=== PATIENT | male | born 1985 | race Caucasian/White ===

== ENCOUNTER 2017-01-09 07:43 | Inpatient (IN) | payer MEDICARE, OTHER ==
[~2017-01-09] VITALS: Wt 62.3 kg
[2017-01-09] MEDS ORDERED: LORAZEPAM 2 MG INJ ONE ×2 (07:50)
[2017-01-09] MEDS ORDERED: LORAZEPAM 2 MG INJ IM STA (07:54)
[2017-01-09] MEDS ORDERED: SOD CHLORIDE 0.9% 1,000 ML IV STA (07:54)
--- NOTE | 2017-01-09 07:58 | ERD ---
ER Documentation Chief Complaint Date/Time DATE: 01/09/17 TIME: 07:56 Chief Complaint HPI Patient is a 31-year-old male who is found outside of a business in a parking lot acting erratically. The patient reported that he been in an alley using methamphetamine for the last 2 days. He was approached by police and became more agitated. There is no reported sign of trauma or complaint. Patient was noted to be covered in dirt and wearing only underwear. The patient currently has no complaints and is requesting to go to detention. He denies injury, medical condition, suicidality. ROS All systems reviewed and are negative except as per history of present illness. PMhx/Soc Past medical history: None Past surgical history: None Social history: Uses methamphetamine FmHx Family History: No coronary disease, No diabetes Physical Exam Vitals Vital Signs Date Time Temp Pulse Resp B/P Pulse Ox O2 Delivery O2 Flow Rate FiO2 01/09/17 12:22 82 17 111/62 99 01/09/17 11:58 59 14 122/70 94 Room Air 01/09/17 10:48 109 18 116/70 99 01/09/17 08:15 98.9 112 24 117/68 98 01/09/17 08:01 130 18 126/70 98 Physical Exam Const: Agitated, thrashing in bed, redirectable Head: Atraumatic Eyes: Normal Conjunctiva, no pallor, no icterus. Mydriasis ENT: Normal External Ears, Nose and Mouth. Tacky mucous membranes Neck: Full range of motion..~ No meningismus. Resp: Clear to auscultation bilaterally, no wheezes, no rales Cardio: Tachycardia, regular rhythm, no murmurs Abd: Soft, non tender, non distended. Skin: No petechiae or rashes, covered in dirt from head to toe Back: No midline or flank tenderness Ext: No cyanosis, or edema Neur: Awake and alert, significant akathisia, cranial nerves II through XII intact bilaterally, strength and sensation full in 4 extremities. Psych: Agitated Result Diagram: 01/09/17 0908 01/09/17 0908 Results 24 hrs Laboratory Tests Test 01/09/17 09:05 01/09/17 09:08 01/09/17 10:00 Urine Color YELLOW Urine Clarity CLOUDY Urine pH 5.0 Urine Specific [place] 1.016 Urine Ketones TRACEmg/dL Urine Nitrite NEGATIVEmg/dL Urine Bilirubin NEGATIVEmg/dL Urine Urobilinogen NEGATIVEmg/dL Urine Leukocyte Esterase NEGATIVELeu/ul Urine Microscopic RBC > 182/HPF Urine Microscopic WBC 10/HPF Urine Amorphous Crystals FEW/HPF Urine Bacteria FEW/HPF Urine Hyaline Casts FEW/HPF Urine Granular Casts FEW/HPF Urine Mucus FEW/HPF Urine Yeast (Budding) MODERATE/HPF Urine Hemoglobin 3+mg/dL Urine Glucose NEGATIVEmg/dL Urine Total Protein 1+mg/dl Urine Opiates Screen Positive Urine Barbiturates Positive Urine Amphetamines Screen POSITIVE Urine Benzodiazepines Screen Positive Urine Cocaine Screen Negative Urine Cannabinoids Negative White Blood Count 13.110^3/ul Red Blood Count 4.6410^6/ul Hemoglobin 13.6g/dl Hematocrit 38.8% Mean Corpuscular Volume 83.6fl Mean Corpuscular Hemoglobin 29.3pg Mean Corpuscular Hemoglobin Concent 35.1g/dl Red Cell Distribution Width 13.2% Platelet Count 63628^3/UL Mean Platelet Volume 11.0fl Neutrophils % 80.8% Lymphocytes % 8.3% Monocytes % 9.7% Eosinophils % 0.5% Basophils % 0.2% Nucleated Red Blood Cells % 0.0/100WBC Neutrophils # 10.610^3/ul Lymphocytes # 1.110^3/ul Monocytes # 1.310^3/ul Eosinophils # 0.110^3/ul Basophils # 0.010^3/ul Nucleated Red Blood Cells # 0.010^3/ul Sodium Level 134mmol/L Potassium Level 4.3mmol/L Chloride Level 89mmol/L Carbon Dioxide Level 19mmol/L Anion Gap 30 Blood Urea Nitrogen 68mg/dl Creatinine 2.45mg/dl Glucose Level 81mg/dl Calcium Level 8.4mg/dl Total Bilirubin 0.8mg/dl Direct Bilirubin 0.00mg/dl Indirect Bilirubin 0.8mg/dl Aspartate Amino Transf (AST/SGOT) 98IU/L Alanine Aminotransferase (ALT/SGPT) 60IU/L Alkaline Phosphatase 115IU/L Creatine Kinase 2990IU/L 3055IU/L Total Protein 7.8g/dl Albumin 5.2g/dl Globulin 2.60g/dl Albumin/Globulin Ratio 2.00 Salicylates Level < 1.0mg/dl Acetaminophen Level < 10.0ug/ml Ethyl Alcohol Level < 10.0mg/dl Current Medications Medications (Trade) Dose Ordered Sig/Livan Route PRN Reason Start Time Stop Time Status Last Admin Dose Admin Sodium Chloride (NS) 1,000 ml @ 1,000 mls/hr Q1H STAT IV 01/09/17 07:54 01/09/17 08:53 DC 01/09/17 09:13 Lorazepam 4 mg 4 mg ONCE STAT IM 01/09/17 07:54 01/09/17 07:56 DC 01/09/17 07:54 Sodium Chloride 1,000 ml @ 1,000 mls/hr Q1H ONCE IV 01/09/17 08:00 01/09/17 08:59 DC 01/09/17 10:30 Sodium Chloride (NS) 1,000 ml @ 1,000 mls/hr Q1H ONCE IV 01/09/17 11:30 01/09/17 12:29 DC 01/09/17 11:59 Procedures/MDM MDM: Patient is a 31-year-old male with recent methamphetamine use who presents to the ER with psychotic episode. He had severe agitation and akathisia. He was given IM Ativan for behavioral control. He was given IV fluids for clinical signs of dehydration. A creatine kinase was elevated at nearly 3000, and on subsequent recheck after IV fluids was up trending. The patient has evidence of acute renal injury which may be in part due to dehydration, but I cannot exclude renal injury from rhabdomyolysis. There are no signs of trauma on exam. The patient had stable vital signs. The patient had snoring respirations after receiving Ativan and required monitoring for brief episodes of desaturation. He appeared to be protecting his airway adequately. His chest x-ray showed a questionable infiltrate, but I do not believe the patient has clinical signs of pneumonia at this time. I will defer antibiotics and will admit the patient to observation for further monitoring and hydration. He will need further evaluation as to potential underlying psychiatric condition as well as possible symptoms once he is awake and evaluable. At this time he remains sedated with intermittent episodes of wakefulness with agitation to preclude adequate exam. Departure Diagnosis: Primary Impression: Drug-induced psychotic disorder Complication of substance-induced condition: with unspecified complication Qualified Code: F19.959 - Drug-induced psychotic disorder, with unspecified complication Additional Impressions: Rhabdomyolysis Rhabdomyolysis type: non-traumatic Qualified Code: M62.82 - Non-traumatic rhabdomyolysis Acute renal failure Acute renal failure type: unspecified Qualified Code: N17.9 - Acute renal failure, unspecified acute renal failure type Dehydration Condition: REZA Lewis MD Jan 09, 2017 07:58
[2017-01-09] MEDS ORDERED: SOD CHLORIDE 0.9% 1,000 ML IV ONE ×2 (08:00→11:30)
[2017-01-09 09:30] LABS: BASOPHILS % 0.2 % (0.0-2.0); EOSINOPHILS # 0.1 10^3/ul (0.0-0.5); EOSINOPHILS % 0.5 % (0.0-7.0); HEMATOCRIT 38.8 % (42.0-52.0); HEMOGLOBIN 13.6 g/dl (14.0-18.0); LYMPHOCYTES # 1.1 10^3/ul (0.8-2.9); LYMPHOCYTES % 8.3 % (15.0-51.0); MEAN CORPUSCULAR HEMOGLOBIN 29.3 pg (29.0-33.0); MEAN CORPUSCULAR HGB CONC 35.1 g/dl (32.0-37.0); MEAN CORPUSCULAR VOLUME 83.6 fl (82.0-101.0); MONOCYTE # 1.3 10^3/ul (0.3-0.9); MONOCYTES % 9.7 % (0.0-11.0); NEUTROPHIL # 10.6 10^3/ul (1.6-7.5); NEUTROPHILS % 80.8 % (39.0-77.0); PLATELET COUNT 218 10^3/UL (140-415); RED BLOOD COUNT 4.64 10^6/ul (4.70-6.10); RED CELL DISTRIBUTION WIDTH 13.2 % (11.5-14.5); WHITE BLOOD COUNT 13.1 10^3/ul (4.8-10.8)
[2017-01-09 09:54] LABS: ALANINE AMINOTRANSFERASE 60 IU/L (13-69); ALBUMIN 5.2 g/dl (3.3-4.9); ALKALINE PHOSPHATASE 115 IU/L (42-121); ANION GAP 30 (8-16); ASPARTATE AMINO TRANSFERASE 98 IU/L (15-46); BILIRUBIN,INDIRECT 0.8 mg/dl (0-1.1); BILIRUBIN,TOTAL 0.8 mg/dl (0.2-1.3); BLOOD UREA NITROGEN 68 mg/dl (7-20); CALCIUM 8.4 mg/dl (8.4-10.2); CARBON DIOXIDE 19 mmol/L (21-31); CHLORIDE 89 mmol/L (97-110); CREATININE 2.45 mg/dl (0.61-1.24); GLUCOSE 81 mg/dl (70-220); POTASSIUM 4.3 mmol/L (3.5-5.1); SODIUM 134 mmol/L (135-144); TOTAL PROTEIN 7.8 g/dl (6.1-8.1)
[2017-01-09 09:55] LABS: UR AMORPHOUS CRYSTAL FEW /HPF (NONE SEEN); UR RBC > 182 /HPF (0-5)
[2017-01-09 10:01] LABS: BARBITURATES Positive (NEGATIVE); BENZODIAZEPINES Positive (NEGATIVE)
[2017-01-09 10:01] LABS: ACETAMINOPHEN < 10.0 ug/ml (10.0-30.0); ETHANOL < 10.0 mg/dl; SALICYLATE < 1.0 mg/dl (5.0-30.0)
[2017-01-09 10:05] LABS: UR BUDDING YEAST MODERATE /HPF (NONE SEEN); UR MUCUS FEW /HPF (NONE SEEN)
[2017-01-09 10:07] LABS: CREATINE KINASE 2990 IU/L (23-200)
[2017-01-09 10:08] LABS: CANNABINOIDS Negative (NEGATIVE); COCAINE Negative (NEGATIVE); OPIATES Positive (NEGATIVE)
[2017-01-09 11:51] LABS: ADD UMIC YES; UR ASCORBIC ACID NEGATIVE (NEGATIVE); UR BACTERIA FEW /HPF (NONE SEEN); UR BILIRUBIN (Dip) NEGATIVE (NEGATIVE); UR BLOOD (Dip) 3+ mg/dL (NEGATIVE); UR CLARITY CLOUDY (CLEAR); UR COLOR YELLOW (YELLOW); UR GLUCOSE (Dip) NEGATIVE (NEGATIVE); UR KETONES (Dip) TRACE mg/dL (NEGATIVE); UR LEUKOCYTE ESTERASE (Dip) NEGATIVE Leu/ul (NEGATIVE); UR NITRITE (Dip) NEGATIVE (NEGATIVE); UR SPECIFIC GRAVITY (Dip) 1.016 (1.003-1.030); UR TOTAL PROTEIN (Dip) 1+ mg/dl (NEGATIVE); UR UROBILINOGEN (Dip) NEGATIVE (NEGATIVE)
--- NOTE | 2017-01-09 12:58 | RADRPT ---
PROCEDURE: XR Chest. CLINICAL INDICATION: Hypoxemia and a 31 year-old male. TECHNIQUE: Single frontal view of the chest was obtained. COMPARISON: None FINDINGS: The soft tissues are normal. The bony elements are normal. The heart is enlarged. The cardiomedia stinal silhouette and hilar structures are normal. The pulmonary vasculature is normal. There is a left-sided aorta. There are equivocal infiltrates in the left perihilar area. Increased density in t he area may be the result of rotation of the patient associated with a poor inspiration. There is a suboptimal inspiration. The costophrenic angles are normal. IMPRESSION: 1. Left ventricular enlargement. 2. Early infiltrates in the left hilar area are not excluded. RPTAT:AAJJ Physician Diana Date Time Electronically viewed and signed by Shabbir Mayfield Physician on 01/09/2017 12:58 HAMZAH/
[2017-01-09] MEDS ORDERED: ONDANSETRON 4 MG INJ IV PRN ×2 (13:30→14:00)
[2017-01-09] MEDS ORDERED: ACETAMINOPHEN 325 MG TAB PO PRN ×2 (13:30→14:00)
[2017-01-09] MEDS ORDERED: MAGNESIUM SULFATE 2 GM/50 ML 50 ML IVPB ONE (14:00)
[2017-01-09] MEDS ORDERED: DOCUSATE SODIUM 100 MG CAP PO PRN (14:00)
[2017-01-09] MEDS ORDERED: ACETAMINOPHEN 650 MG SUPP PR PRN (14:00)
[2017-01-09] MEDS ORDERED: MAGNESIUM HYDROXIDE 30ML CUP PO PRN (14:00)
[2017-01-09] MEDS ORDERED: NACL 0.9% 3 ML SYG IV SCH (14:00)
[2017-01-09] MEDS ORDERED: BISACODYL 10 MG SUPP PR PRN (14:00)
[2017-01-09] MEDS ORDERED: morphine 2 MG INJ IV PRN (14:00)
--- NOTE | 2017-01-09 14:04 | HP ---
Date/Time of Note Date/Time of Note DATE: 01/09/17 TIME: 13:55 Assessment/Plan VTE Prophylaxis VTE Prophylaxis Intervention: SCD's Assessment/Plan Chief Complaint/Hosp Course Impression and plan 1. Altered mentation secondary to drug overdose. Patient did have positive tox screen for benzodiazepines, amphetamines, opioids and barbiturates. Patient IV hydration. Monitor neuro status and vital signs. Pain management physician to follow. Start on IV hydration. 2. Rhabdomyolysis. Unknown if patient with trauma. Start IV hydration. monitor CK 3. Acute renal failure. Start IV hydration. Will get x ray service engineer to follow. . Likely secondary to dehydration. 4. Suspect new onset pneumonia. Will start on antibiotic 5. Hyponatremia. Start IV hydration. 6. Drug abuse. Will get social security benefits interviewer to follow 7. Leukocytosis. check urine cultures Discussed plan of care with Dr. Dawn Admission Process time: 40 minutes Problems: HPI/ROS Admit Date/Time Admit Date/Time Hx of Present Illness This is a 31-year-old male with unknown past medical history who was brought to [facility] after being found with erratic behavior and altered mentation. It was reported the patient had been using meth amphetamine for 2 days prior to admission. He was approached by police and became agitated. There were no reports or signs of trauma. He was of note seen covering during only wearing his underwear. It was reported that patient had been requesting to go to penitentiary. It was reported he denies any injury or mental health condition or suicidality. He was brought to [facility] for further evaluation. Upon examination he was noted to have white count of 15.1. He also had positive tox screen for opiates, barbiturates, amphetamines, benzodiazepines. Chest x-ray did show him to have some left ventricular enlargement early infiltrates in the left hilar area suspect for possible early pneumonia. Per patient metabolic panel, patient was seen with acute renal failure and creatinine kinase as high as 2054 with signs of rhabdomyolysis. Patient at present remains somnolent. He does awaken to noxious stimulus. We will evaluate him for the aformentiond issues.. ROS Unable to fully obtain due to patient's altered mentation PMH/Family/Social Past Medical History Unable to obtain due to patient's altered mentation Past Surgical History Unable to obtain due to patient's altered mentation Social History Smoking Status: Heavy tobacco smoker Drug Use: other (1. Opioids, amphetamines, barbiturates, benzodiazepines) Exam/Review of Systems Vital Signs Vitals Vital Signs Date Time Temp Pulse Resp B/P Pulse Ox O2 Delivery O2 Flow Rate FiO2 01/09/17 13:46 68 18 118/73 98 Room Air 01/09/17 08:15 98.9 Exam Constitutional: frail, other (Somnolent. Awakens to noxious stimulus. Does have disheveled appearance and covered in dirt) Neck: No jvd Respiratory: clear to auscultation, normal air movement Cardiovascular: other (Regular rate) Gastrointestinal: non-tender, soft Neurological: other (Somnolent, lethargic) Labs Result Diagram: 01/09/1708 01/09/17 0908 Medications Medications Current Medications Sodium Chloride (NS) 1,000 ml @ 125 mls/hr Q8H IV ; Start 01/09/17 at 13:47; Status UNV Ondansetron HCl (Zofran Inj) 4 mg Q6H PRN IV NAUSEA AND/OR VOMITING; Start 01/09 at 14:00; Status UNV Acetaminophen (Tylenol Tab) 650 mg Q6H PRN PO PAIN LEVEL 1-3 OR FEVER; Start at 14:00; Status UNV Acetaminophen (Tylenol Supp) 650 mg Q6H PRN [place] PAIN LEVEL 1-3 OR FEVER; Start 01/09/17 at 14:00; Status UNV Morphine Sulfate (morphine) 2 mg Q4H PRN IV SEVERE PAIN LEVEL 7-10; Start at 14:00; Status UNV Docusate Sodium (Colace) 100 mg Q12H PRN PO CONSTIPATION; Start 01/09/17 at 14: 00; Status UNV Magnesium Hydroxide (Milk Of Mag) 30 ml DAILY PRN PO CONSTIPATION; Start at 14:00; Status UNV Bisacodyl (Dulcolax Supp) 10 mg DAILY PRN [place] CONSTIPATION; Start 01/09/17 at 14: 00; Status UNV Famotidine 20 mg 20 mg Q12 PO ; Start 01/09/17 at 21:00; Status UNV Levofloxacin/ Dextrose (Levaquin 500mg/ D5W 100 ml (Pmx)) 100 ml @ 100 mls/hr DAILY IVPB ; Start 01/09/17 at 14:00; Status AMBER FAULKNER Jan 09, 2017 14:04
[2017-01-09] MEDS ORDERED: LEVOFLOXACIN 500MG/D5W (PMX) 100 ML IVPB SCH (15:00)
[2017-01-09] MEDS: SOD CHLORIDE 0.9% 1,000 ML IV SCH ×2 (15:24→21:47)
--- NOTE | 2017-01-09 15:55 | CONS ---
Date/Time of Note Date/Time of Note DATE: 01/09/17 TIME: 15:52 Assessment/Plan Assessment/Plan Chief Complaint/Hosp Course A/P LUIZ ATN RHABOMYOLYSIS SEVERE DEHYDARTION PLAN IV FLUID W NAHCO3 Problems: Consultation Date/Type/Reason Admit Date/Time Initial Consult Date Type of Consultation: renal [id number] 24 HR Interval Summary Constitutional: other (sedated) Exam/Review of Systems Vital Signs Vitals Vital Signs Date Time Temp Pulse Resp B/P Pulse Ox O2 Delivery O2 Flow Rate FiO2 01/09/17 15:24 71 9 120/69 99 Room Air 01/09/17 08:15 98.9 Exam Head: normocephalic Neck: supple Respiratory: clear to auscultation Cardiovascular: regular rate and rhythm Gastrointestinal: bowel sounds (+), soft Musculoskeletal: nl extremities to inspection Neurological: lethargic Results Result Diagram: 01/09/17 0908 01/09/17 0908 Results 24 hrs Laboratory Tests Test 01/09/17 09:05 01/09/17 09:08 01/09/17 10:00 Urine Color YELLOW Urine Clarity CLOUDY A Urine pH 5.0 Urine Specific [place] 1.016 Urine Ketones TRACE A Urine Nitrite NEGATIVE Urine Bilirubin NEGATIVE Urine Urobilinogen NEGATIVE Urine Leukocyte Esterase NEGATIVE Urine Microscopic RBC > 182 H Urine Microscopic WBC 10 H Urine Amorphous Crystals FEW A Urine Bacteria FEW A Urine Hyaline Casts FEW A Urine Granular Casts FEW A Urine Mucus FEW A Urine Yeast (Budding) MODERATE A Urine Hemoglobin 3+ H Urine Glucose NEGATIVE Urine Total Protein 1+ H Urine Opiates Screen Positive Urine Barbiturates Positive Urine Amphetamines Screen POSITIVE Urine Benzodiazepines Screen Positive Urine Cocaine Screen Negative Urine Cannabinoids Negative White Blood Count 13.1 H Red Blood Count 4.64 L Hemoglobin 13.6 L Hematocrit 38.8 L Mean Corpuscular Volume 83.6 Mean Corpuscular Hemoglobin 29.3 Mean Corpuscular Hemoglobin Concent 35.1 Red Cell Distribution Width 13.2 Platelet Count 218 Mean Platelet Volume 11.0 H Neutrophils % 80.8 H Lymphocytes % 8.3 L Monocytes % 9.7 Eosinophils % 0.5 Basophils % 0.2 Nucleated Red Blood Cells % 0.0 Neutrophils # 10.6 H Lymphocytes # 1.1 Monocytes # 1.3 H Eosinophils # 0.1 Basophils # 0.0 Nucleated Red Blood Cells # 0.0 Sodium Level 134 L Potassium Level 4.3 Chloride Level 89 L Carbon Dioxide Level 19 L Anion Gap 30 H Blood Urea Nitrogen 68 H Creatinine 2.45 H Glucose Level 81 Calcium Level 8.4 Total Bilirubin 0.8 Direct Bilirubin 0.00 Indirect Bilirubin 0.8 Aspartate Amino Transf (AST/SGOT) 98 H Alanine Aminotransferase (ALT/SGPT) 60 Alkaline Phosphatase 115 Creatine Kinase 2990 H 3055 H Total Protein 7.8 Albumin 5.2 H Globulin 2.60 Albumin/Globulin Ratio 2.00 Salicylates Level < 1.0 L Acetaminophen Level < 10.0 L Ethyl Alcohol Level < 10.0 Medications Medications Current Medications Sodium Chloride (NS) 1,000 ml @ 125 mls/hr Q8H IV Last administered on 15:24; Admin Dose 125 MLS/HR; Start 01/09/17 at 13:47 Ondansetron HCl (Zofran Inj) 4 mg Q6H PRN IV NAUSEA AND/OR VOMITING; Start 01/09 at 14:00 Acetaminophen (Tylenol Tab) 650 mg Q6H PRN PO PAIN LEVEL 1-3 OR FEVER; Start at 14:00 Acetaminophen (Tylenol Supp) 650 mg Q6H PRN [place] PAIN LEVEL 1-3 OR FEVER; Start 01/09/17 at 14:00 Morphine Sulfate (morphine) 2 mg Q4H PRN IV SEVERE PAIN LEVEL 7-10; Start at 14:00 Docusate Sodium (Colace) 100 mg Q12H PRN PO CONSTIPATION; Start 01/09/17 at 14: 00 Magnesium Hydroxide (Milk Of Mag) 30 ml DAILY PRN PO CONSTIPATION; Start at 14:00 Bisacodyl (Dulcolax Supp) 10 mg DAILY PRN [place] CONSTIPATION; Start 01/09/17 at 14: 00 Famotidine 20 mg 20 mg Q12 PO ; Start 01/09/17 at 21:00 Levofloxacin/ Dextrose 100 ml @ 100 mls/hr DAILY@15 IVPB ; Start 01/09/17 at 15: 00 Magnesium Sulfate (Magnesium Sulfate 2 Gm/50 ml) 50 ml @ 25 mls/hr ONCE ONCE IVPB Last administered on 01/09/17 14:49; Admin Dose 25 MLS/HR; Start 01/09/17 at 14:00; Stop 01/09/17 at 15:59 Haloperidol (Haldol) 5 mg ONCE ONCE IM ; Start 01/09/17 at 16:00; Stop 01/09/17 at 16:01 MAG MCGRAW MD Jan 09, 2017 15:55
[2017-01-09] MEDS ORDERED: HALOPERIDOL 5 MG INJ IM ONE (16:00)
[2017-01-09 17:00] VITALS: BP 96/50; PULSE 77; RESP 18
[2017-01-09 17:01] VITALS: PULSE 77
[2017-01-09] MEDS: SODIUM BICARBONATE (IV ADD) 50 MEQ in DEXTROSE 5% 1,000 ML IV SCH (20:37)
[2017-01-09 21:11] VITALS: BP 110/55; RESP 18
[2017-01-09 21:16] VITALS: PULSE 86
[2017-01-09] MEDS ORDERED: LORAZEPAM 2 MG INJ IV PRN (21:30)
[2017-01-09] MEDS: FAMOTIDINE 20 MG TAB PO SCH (21:32)
[2017-01-10 00:15] VITALS: BP 115/62; RESP 18
[2017-01-10 00:34] VITALS: PULSE 82
[2017-01-10 01:39] LABS: PROTEIN/CREAT RATIO 0.16 RATIO
[2017-01-10] MEDS: SODIUM BICARBONATE (IV ADD) 50 MEQ in DEXTROSE 5% 1,000 ML IV SCH ×2 (03:00→09:03)
[2017-01-10 04:06] VITALS: BP 109/65; RESP 18
[2017-01-10 04:46] VITALS: PULSE 71
[2017-01-10] MEDS: SOD CHLORIDE 0.9% 1,000 ML IV SCH (05:35)
[2017-01-10 08:00] VITALS: PULSE 65
[2017-01-10 08:06] VITALS: BP 124/66; RESP 18
[2017-01-10] MEDS ORDERED: ALPRAZOLAM 0.25 MG TAB PO PRN (09:30)
--- NOTE | 2017-01-10 09:40 | CONS ---
Date/Time of Note Date/Time of Note DATE: 01/10/17 TIME: 09:20 Assessment/Plan Assessment/Plan Additional Assessment/Plan Patient states he is not interested in staying and is not interested in a methadone during this hospitalization. In view of this I would suggest early discharge if okay with primary care team. Would not recommend any opioids benzodiazepines anxiolytics of any kind prior to discharge but documented patient refused to stay and that we did make an offer to stabilize his medical problems. If he did stay we would refer him to a drug treatment program. Consultation Date/Type/Reason Admit Date/Time Date of Consultation: Jan 10, 2017 Reason for Consultation Pain management Hx of Present Illness 31-year-old male who was found altered and combative brought into the emergency room [facility] and put on hold. Was found to have acute renal insufficiency and rhabdomyolysis. Patient's tox screen was positive for benzodiazepines methamphetamine and heroin. Patient states that the also uses SSRIs, Suboxone and Xanax primarily to lessen withdrawal side effects. States he has been incarcerated in the past and has been through at least 30 drug rehab program he is not actively employed. He is amnestic to events of yesterday at this time states he wants to leave because he cannot find his clothes in her wallet. He is speaking fast and somewhat agitated with my question. Appears to be in no distress denies nausea vomiting chest pain shortness of breath cough headache earache sore throat, dizziness type locally disorientation. There are no symptom management issues that has not been addressed since hospitalization. Patient is not asking for sedatives or opioid however he is anxious to leave in spite of the fact I told him that he had kidney damage and dehydration. Patient has no desire to stay or to speak about ongoing rehab program, I could not get a history of present illness family history of substance abuse. He states he is HIV negative and hepatitis C negative but does engage in unsafe sexual activity. Constitutional: other (sedated) Past Medical History Medical History: other Social History Smoking Status: Heavy tobacco smoker Drug Use: other (1. Opioids, amphetamines, barbiturates, benzodiazepines) Exam/Review of Systems Vital Signs Vitals Vital Signs Date Time Temp Pulse Resp B/P Pulse Ox O2 Delivery O2 Flow Rate FiO2 01/10/17 08:06 98.5 69 18 124/66 98 01/09/17 17:00 Room Air Intake and Output 01/09/17 01/09/17 01/10/17 15:00 23:00 07:00 Intake Total 3600 ml 2562.5 ml Output Total 700 ml 350 ml Balance -700 ml 3250 ml 2562.5 ml Exam Constitutional: alert, oriented, well developed Psych: anxiety Head: atraumatic, normocephalic Eyes: EOMI, PERRL, nl conjunctiva, nl lids, nl sclera Neck: non-tender, supple Respiratory: clear to auscultation, normal air movement Cardiovascular: nl pulses, regular rate and rhythm Gastrointestinal: nl liver, spleen, non-tender, soft Musculoskeletal: nl extremities to inspection, nl gait and stance Neurological: MALTED MILK MIXER II-XII intact, nl mental status, nl speech, nl strength Skin: other (Areas of excoriations and scarring bilateral upper extremities bilateral upper back) Results Result Diagram: 01/09/17 0908 01/09/17 0908 Results 24 hrs Laboratory Tests Test 01/09/17 10:00 Creatine Kinase 3055 H Medications Medications Current Medications Sodium Chloride (NS) 1,000 ml @ 125 mls/hr Q8H IV Last administered on t 05:35; Admin Dose 125 MLS/HR; Start 01/09/17 at 13:47 Ondansetron HCl (Zofran Inj) 4 mg Q6H PRN IV NAUSEA AND/OR VOMITING; Start 01/09 at 14:00 Acetaminophen (Tylenol Tab) 650 mg Q6H PRN PO PAIN LEVEL 1-3 OR FEVER; Start at 14:00 Acetaminophen (Tylenol Supp) 650 mg Q6H PRN [place] PAIN LEVEL 1-3 OR FEVER; Start 01/09/17 at 14:00 Morphine Sulfate (morphine) 2 mg Q4H PRN IV SEVERE PAIN LEVEL 7-10; Start at 14:00 Docusate Sodium (Colace) 100 mg Q12H PRN PO CONSTIPATION; Start 01/09/17 at 14: 00 Magnesium Hydroxide (Milk Of Mag) 30 ml DAILY PRN PO CONSTIPATION; Start at 14:00 Bisacodyl (Dulcolax Supp) 10 mg DAILY PRN [place] CONSTIPATION; Start 01/09/17 at 14: 00 Famotidine 20 mg 20 mg Q12 PO Last administered on 01/09/17 21:32; Admin Dose 20 MG; Start 01/09/17 at 21:00 Levofloxacin/ Dextrose 100 ml @ 100 mls/hr DAILY@15 IVPB Last administered on 01/09/17 18:08; Admin Dose 100 MLS/HR; Start 01/09/17 at 15:00 Sodium Bicarbonate/ Dextrose (Na Bicarb/D5W) 1,050 ml @ 100 mls/hr [id number] IV Last administered on 01/09/17 20:37; Admin Dose 100 MLS/HR; Start 01/09/17 at 16: 30 Lorazepam (Ativan) 2 mg Q3H PRN IV AGITATION Last administered on 01/09/17 21: 33; Admin Dose 2 MG; Start 01/09/17 at 21:30 DUSTIN HUTCHINS Jan 10, 2017 09:31
[2017-01-10] MEDS: FAMOTIDINE 20 MG TAB PO SCH (09:48)
[2017-01-10] MEDS ORDERED: traMADol 50 MG TAB PO SCH (10:00)
--- NOTE | 2017-01-11 08:01 | CONS ---
DATE OF ADMISSION: 01/09/2017 DATE OF CONSULTATION: Thank you, Dr. garrido and Dr. tomlinson for kindly asking me to see this patient in nephrology consultation. REASON FOR CONSULTATION: The patient presented to this hospital with altered mental status. The patient is unable to give any detailed history at the time of this dictation. HISTORY OF PRESENT ILLNESS: A 31-year-old male, who was found outside of a business in the parking lot acting erratically per ER note. He has been using methamphetamines for the last 2 days. When approached by the police he became more agitated. Blood pressure 111/62. WBC 13.1, hematocrit 38.8. Sodium 130, potassium 4.3, BUN 68, creatinine 2.45. The patient is admitted for further management. He received normal saline and lorazepam in the ER, and with the patient's abnormal a nephrology consultation requested. PAST MEDICAL HISTORY: Cannot be obtained from this patient. ALLERGIES: uk. CURRENT MEDICATIONS: Not available. REVIEW OF SYSTEMS: Cannot be obtained. PHYSICAL EXAMINATION: GENERAL: The patient looks clinically dehydrated, is very sedated at this point. VITAL SIGNS: Pulse 68, blood pressure 118/73. HEENT: Head is atraumatic, normocephalic. Pupils equal and reactive. NECK: Supple. LUNGS: Clear. CARDIOVASCULAR: S1, S2 normal. ABDOMEN: Soft. Bowel sounds positive. EXTREMITIES: There is no cyanosis, clubbing or edema. NEUROLOGIC: The patient is sedated. LABORATORY DATA: As mentioned above. Sodium 130, potassium 4.3, BUN 68, creatinine 2.45, CPK 3055. The patient has urine with RBCs positive. Chest x-ray, left ventricle enlargement in the left hilar area. IMPRESSION: 1. Acute kidney injury. 2. Dehydration. 3. Rhabdomyolysis, mild. 4. Acute kidney injury. 5. The patient has underlying acute tubular necrosis due to drug induced rhabdomyolysis. 6. Incomplete data. PLAN: Obtain urine sodium and creatinine. The patient will be on IV fluids with sodium bicarbonate. Orders were done. If the patient has worsening renal failure, will be considered. Dr. hema Willson, for kindly asking me to see this patient in nephrology consultation. Dictated By: Jeramie Rollins MD /alejandro/patt /Document#: [id number] MTDD
--- NOTE | 2017-01-12 16:21 | DS ---
Date/Time of Note Date/Time of Note DATE: 01/12/17 TIME: 16:19 Discharge Summary Admission/Discharge Info Admit Date/Time Jan 09, 2017 at 13:36 Discharge Date/Time Jan 10, 2017 at 11:26 Hospital Course Patient left AGAINST MEDICAL ADVICE. Patient was educated about consequences of medical noncompliance. Patient still left AMA. Primary Care Provider Care Physician AMBER Curiel Jan 12, 2017 16:21
== END 2017-01-10 11:26 | disposition left against medical advice (07) | DRG 56 ==
LOC: E/R 07:43 → MS4 13:36
PROVIDERS: ADMIT Internal Medicine; ATTEND Internal Medicine
DX: G25.71 Drug induced akathisia (principal); N17.0 Acute kidney failure with tubular necrosis; M62.82 Rhabdomyolysis; J18.9 Pneumonia, unspecified organism; E86.0 Dehydration; E87.1 Hypo-osmolality and hyponatremia; F19.959 Other psychoactive substance use, unspecified with psychoactive substance-induced psychotic disorder, unspecified; T43.621A Poisoning by amphetamines, accidental (unintentional), initial encounter; Y92.89 Other specified places as the place of occurrence of the external cause; F11.19 Opioid abuse with unspecified opioid-induced disorder
CPT/HCPCS: 36415; 71010; 80053; 80306; 80307; 81001; 81003; 82550; 82570; 84155; 84300; 85025; 87086; 93005; 96361; 96372; 96374; J1956; J2060; J3475; J7030; J7070